=== PATIENT | male | born 1970 | race Caucasian/White ===

== ENCOUNTER → 2018-01-03 12:30 | Outpatient (CLI) | payer OTHER, SELFPAY ==
--- NOTE | 2018-01-03 | CYSPIN_PTH ---
PATIENT: MAGGIE BLANKENSHIP LOC: [facility] U#:[id number] AGE/SX: 55/M ROOM: RE01/03/[address]: Dr. Casey Ross MD : 1970 BED: DIS: SPEC #: [id number] RECD: 01/03/18 13:18 STATUS: MARILUZ MILESShea #: [id number] LYLY: 01/03/18 00:[address]: Casey Ross DEPT: CYTOLOGY RECD BY: Melchor Mtz ENTERED: 01/03/18 13:18 SP TYPE: CYSPIN FL OTHR DR: Dr. Yonatan Eldridge MD Tissues: Urine Procedures: Pap Stain (control) Special Stain Group II Cytospin Fluid HEADER OPERATION: Not noted PRE-OP DIAGNOSIS: Hematuria R31.21 TISSUE SUBMITTED: Urine for cytology DIAGNOSIS CYTOLOGY Urine for cytology (cytospin): Negative for malignant cells. SJ:alex 01/04/18 CYTOLOGY STUDY Slides are reviewed. The specimen consists of red blood cells, benign squamous cells, urothelial cells and inflammatory cells. CYTOLOGY GROSS Received is 40 ml of gold clear fluid labeled with the patient's name and and designated per the requisition as urine. Submitted for cytology preparation. 01/03/18 TC:5 CPT: 67906
[2018-01-03 12:32] LABS: Cytology, Body Fluid / CSF SEE PATHOLOGY REPORT
== END ==
PROVIDERS: Family Provider Family Medicine; PCP Family Medicine; Visit Provider Urology
DX: R31.9 Hematuria, unspecified (principal)
CPT/HCPCS: 88108; 88313

== ENCOUNTER → 2018-07-01 16:17 | Outpatient (CLI) | payer OTHER, SELFPAY ==
--- NOTE | 2018-07-01 09:30 | CYSPIN_PTH ---
PATIENT: MAGGIE BLANKENSHIP LOC: [facility] U#:[id number] AGE/SX: 55/M ROOM: RE07/01/[address]: JOHN Dockery : 1970 BED: DIS: SPEC #: [id number] RECD: 07/01/18 10:33 STATUS: MARILUZ LONI #: [id number] LYLY: 07/01/18 09:[address]: Joann Arellano NP DEPT: CYTOLOGY RECD BY: Hong Washington ENTERED: 07/02/18 10:34 SP TYPE: CYSPIN FL OTHR DR: MD Dr. Ron Elise MD Tissues: Urine Procedures: Pap Stain (control) Special Stain Group II Cytospin Fluid HEADER OPERATION: Not noted PRE-OP DIAGNOSIS: Hematuria TISSUE SUBMITTED: Urine for cytology DIAGNOSIS CYTOLOGY Urine for cytology (cytospin): Negative for malignant cells. KARLO:alex 07/03/18 COMMENT Please make reference to previous specimen ([id number]) urine for cytology with diagnosis of negative for malignant cells. CYTOLOGY STUDY Slides are reviewed. The specimen consists of benign squamous cells, urothelial cells, inflammatory cells and red blood cells. CYTOLOGY GROSS Received is 35 ml of clear, yellow fluid labeled with the patient's name and and designated per the requisition as urine. Submitted for cytology preparation. 07/02/18 TC:5 CPT: 09220
[2018-07-01 16:19] LABS: Cytology, Body Fluid / CSF SEE PATHOLOGY REPORT
== END ==
PROVIDERS: Family Provider Family Medicine; PCP Family Medicine; Visit Provider Nurse Practitioner Adult Health
DX: R31.9 Hematuria, unspecified (principal)
CPT/HCPCS: 88108; 88313

== ENCOUNTER → 2021-01-17 17:07 | Outpatient (CLI) | payer OTHER, SELFPAY ==
[2020-08-24 09:25] VITALS: BMI 32.2
--- NOTE | 2021-01-17 17:07 | MRI_ITS ---
STUDY: MRI RIGHT KNEE REASON FOR EXAM: Male, 50 years old. Knee pain. Injury. Instability. TECHNIQUE: Standardized fat and water weighted pulse sequences were obtained in all 3 orthogonal planes. COMPARISON: X-ray dated 01/07/2021. FINDINGS: Patellofemoral articular cartilage preserved. Lateral compartment articular cartilage preserved. Medial compartment grade 2 cartilage loss. No acute fracture, dislocation or osseous destruction. Lateral meniscus intact. Medial meniscus intact. Small volume joint effusion. Small popliteal cyst. Mild soft tissue swelling. Deep infrapatellar bursitis. Subtle vastus medialis muscle strain (axial image 7 series 2). Normal medial collateral ligamentous complex (MCL). Normal distal semimembranosus, gracilis and semitendinosus tendons. Normal proximal tibiofibular articulation. Normal lateral collateral (fibular) ligament. Normal popliteus tendon. Normal biceps femoris tendon. Normal anterior cruciate ligament (ACL). Normal posterior cruciate ligament (PCL). Normal medial and lateral patellar retinaculum. Normal quadriceps tendon. Normal patellar tendon. Normal Hoffa''s fat pad. MRI/Lower Ext Joint Only (Routine) IMPRESSION: Medial compartment mild cartilage loss Deep infrapatellar bursitis Subtle vastus medialis muscle strain Small-volume joint effusion, small popliteal cyst and mild soft tissue swelling Electronically Signed: Gunnar Collazo DO at 8:28 EST Tel , Service support ,
== END ==
PROVIDERS: PCP Family Medicine; Referring Provider Physician Assistant; Visit Provider Physician Assistant
DX: S86.811A Strain of other muscle(s) and tendon(s) at lower leg level, right leg, initial encounter (principal); M25.561 Pain in right knee; M25.361 Other instability, right knee
CPT/HCPCS: 73721

== ENCOUNTER 2021-02-18 16:00 | Outpatient (RCR) | payer OTHER, SELFPAY ==
--- NOTE | 2021-01-21 13:56 | HP.PTEVAL ---
Patient's Visit Information MAGGIE BLANKENSHIP is a 50 year old M referred to Physical Therapy by Dr. Nisreen Winslow DO with a diagnosis of R KNEE VASTUS MEDIALIS MUSCLE PARTIAL TEAR. Date of Evaluation: 01/21/21 Physical Therapist: Danyell Sun PT, Cert MDT - Visit Plan Frequency: 2-3x /Week Duration: 6 Weeks Plan: *PMH INCLUDES L45 DISC BULGE*. CP NEEDED. R LE ROM, STRETCHING AND STRENGTHENING TO HELP MEET SET GOALS. KNEE BRACE LOCKED IN EXTENSION UNTIL THE END OF JANUARY AND OPEN TO 30 DEG NWB. FOCUS ON CORE, R HIP AND R ANKLE STRENGTHENING TOLERATED AND ISO KNEE STRENGTHENING UNTIL ABLE TO DO DYNAMIC KNEE EX'S. 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 Disability: NO. Present symptoms: MILD PAIN OUTSIDE OF R KNEE. Present since: 12/29/20. Pain Scale: WORST 5/10, LEAST 0/10. Currently: 0/10. Commenced as a result of: I TORE MY QUADWALKING DOWN STEPS KNEE BUCKLED AND POPPED AT WORK. Worse: TRYING TO MOVE AFTER INACTIVITY. HAS NOT TRIED THINGS LIKE SQUATTING BECAUSE INSTRUCTED NOT TOO. Better: ICE. Disturbed sleep: YES. Previous history/Previous treatment: A FEW WEEKS PRIOR TO THIS EPISODE HAVING SOME OCCASSIONAL PAIN AND FEELINGS OF INSTABILITY. NO TREATMENTS. Treatment this episode: BRACE AND PT ORDER. Accidents: NO. Unexplained weight loss: NO. Imaging: RECENT MRI -SEE [facility] EMR: IMPRESSION: . Medial compartment mild cartilage loss. . Deep infrapatellar bursitis. . Subtle vastus medialis muscle strain. . Small-volume joint effusion, small popliteal cyst and mild soft tissue. swelling. Electronically Signed: Gunnar Collazo DO. at 8:28 EST. PMH: L45 DISC BULGE. PATIENT REPORTS SOME INCREASED LB SORENESS AND UNABLE TO SIT WITH GOOD POSTURE DUE TO KNEE BRACE. Recent major surgery: R GREAT TOE JOINT REPLACEMENT 2006. OTHER: BRACE IS TO BE LOCKED IN FULL EXTENSION BUT ALLOWED TO UNLOCK TO 30 DEG IN SITTING. FOLLOW UP PENDING WITH DR. WINSLOW NEEDED. - Objective Sitting/Standing Posture: POOR. Active Correction of posture: PASSIVE CORRECTION IN THE CLINIC IS TOLERATED WELL. Other Observations: INDEP GAIT INTO PT WITH R KNEE BRACE LOCKED IN EXTENSION. Motor deficit: L LE WFL. R LE: HIP - 3+/5, KNEE EXT 2+/5, KNEE FLEX - NT, ANKLE 5/5. Sensory deficit: VALDEZ LE LIGHT TOUCH SENSATION INTACT AND SYMMETRICAL. ROM deficit: L LE WFL. FULL RIGHT KNEE EXT TO AT LEAST 30 DEG FLEXION BUT NOT TESTED FURTHER ORTHO HAS BRACE ONLY RELEASED TO 30 DEG IN NWB X 3 WKS. Palpation: PATIENT WITH MILD RIGHT KNEE EDEMA AND TENDERNESS WITH PALPATION OF THE SUPERIOR LATERAL ASPECT OF THE RIGHT KNEE. TREATMENT: NEUROMUSCULAR REEDUCATION - RETRAINING OF MVMT AND POSTURE FOR SITTING DUE TO HISTORY OF LUMBAR DISC BULGE. INSTRUCTED PATIENT TO CONTINUE WITH BRACED LOCKED IN FULL EXTENSION UNTIL THE END OF JANUARY AND TO FOLLOW UP WITH DR. WINSLOW IN 4-6 WEEKS PER ORTHO NOTE. HEP INSTRUCTION: AP'S, SUBMAX QS'S, GS, STANDING R HIP FLEX, ABD AND EXT, HEEL RAISES. IF-ESTIM WITH CP X 10 MIN TO RIGHT KNEE IN SUPINE - NC. PATIENT TOLERATED ALL INTERVENTIONS WELL. - Goals Goal 1:: INDEP AND SAFE GAIT ON LEVEL SURFACES AND UP AND DOWN STEPS WITH LEAST DEVIATIONS AND WITHOUT KNEE BRACE APPROPRIATE (KNEE BRACE UNTIL AT LEAST THE END OF JANUARY) Goal Time Frame: 6-8 Weeks Goal 2:: IMPROVE FUNCTIONAL ROM OF RIGHT KNEE TO FULL EXT TO 130 DEG FLEX TO AID IN RETURN TO PRIOR LEVEL OF FUNCTION Goal Time Frame: 6-8 Weeks Goal 3:: IMPROVE FUNCTIONAL STRENGTH OF R LE TO 5/5 THROUGHOUT TO EASE ADLS Goal Time Frame: 6-8 Weeks Goal 4:: PATIENT WILL BE INDEP WITH A HOME AND GYM EX PROGRAM FOR CONTINUED IMPROVEMENT ONCE FORMAL PHYSICAL THERAPY CONCLUDES. Goal Time Frame: 6-8 Weeks Goal 5:: DECREASE RIGHT KNEE PAIN AND SWELLING TO EASE ADL'S Goal Time Frame: 6-8 Weeks - Anticipated Interventions Patient/Client Instruction: Educate patient on: Condition, Plan of Care, Risk Factors, Benefits of Fitness Program For the Purpose of:: To improve self management Therapeutic Exercise to Include: Strength training, Balance training, Agility training, Body mechanics, Postural training, Flexibilty training, Gait and locomotor training, Neuromotor development, Active ROM, Dynamic Lumbar Stabilization For the Purpose of:: To decrease pain, To increase ROM, To improve muscle performance and motor function, To increase tolerance to activity/condition/position, To improve ability of physical actions for home/community/work/leisure, To improve gait and locomotor functions Cryotherapy (ice pack, ice massage): Yes For the Purpose of:: To decrease pain, To decrease swelling/inflammation Thank you for the opportunity to evaluate your patient. For Medicare and Medicare HMO plans, please review the plan of care and approve it. It will need to be FAXED BACK to us at [phone] for Medicare purposes. For Medicare only, by signing this I certify the plan of care. Please let me know if there are questions or concerns regarding this plan of care. Physician Signature: Date:
--- NOTE | 2021-08-21 17:01 | HP.PT.NRP ---
MAGGIE BLANKENSHIP was seen in my office for initial evaluation on 01/21/21. The following Plan of Care was established for this patient: Initial Frequency: 2-3x /Week Initial Duration: 6 Weeks Patient/Client Instruction: Educate patient on: Condition, Plan of Care, Risk Factors, Benefits of Fitness Program For the Purpose of:: To improve self management Therapeutic Exercise to Include: Strength training, Balance training, Agility training, Body mechanics, Postural training, Flexibilty training, Gait and locomotor training, Neuromotor development, Active ROM, Dynamic Lumbar Stabilization For the Purpose of:: To decrease pain, To increase ROM, To improve muscle performance and motor function, To increase tolerance to activity/condition/position, To improve ability of physical actions for home/community/work/leisure, To improve gait and locomotor functions Cryotherapy (ice pack, ice massage): Yes For the Purpose of:: To decrease pain, To decrease swelling/inflammation This patient was last seen in our office 02/18/21. Pertinent comments regarding their Physical therapy will appear below: This patient has not returned to Physical Therapy and is appropriate to return to MD for further follow-up as needed. At this point I will be discontinuing this patient from physical therapy. I would be happy to see this patient again in the future if found appropriate by the physician. Thank you! Danyell Sun, PT, Cert MDT Balance/Gait/Functional tests - Balance/Special Test Scores Lower Extremity Functional Score: 32
== END 2021-02-18 19:00 | disposition home or self-care (01) ==
LOC: PT 16:00
PROVIDERS: PCP Family Medicine; Referring Provider Orthopaedic Surgery; Visit Provider Orthopaedic Surgery
DX: S76.111D Strain of right quadriceps muscle, fascia and tendon, subsequent encounter (principal); X58.XXXD Exposure to other specified factors, subsequent encounter; M76.51 Patellar tendinitis, right knee
CPT/HCPCS: 97110; 97112; 97162; 97530